=== PATIENT | female | born 2000 | race Caucasian/White ===

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

== ENCOUNTER 2022-11-23 22:30 | Outpatient (REF) | payer OTHER, MEDICAID, SELFPAY ==
[2022-11-23 21:31] LABS: Bacteria Many HPF (Negative); Crystals Moderate Amorphous HPF (Negative); Epithelial Cells Few HPF (Negative); RBC 0-2 HPF (0-2); WBC 0-2 HPF (0-5)
[2022-11-23 21:32] LABS: C & S Indicated? C&S Done As Ordered; Mucus Negative (Negative)
== END 2022-11-23 22:31 | disposition home or self-care (01) ==
LOC: LBN 22:30
PROVIDERS: PCP Nurse Practitioner Pediatrics; Visit Provider Nurse Practitioner Family
DX: R32 Unspecified urinary incontinence (principal); R35.0 Frequency of micturition
CPT/HCPCS: 81015; 87086

== ENCOUNTER 2023-11-21 09:15 | Outpatient (REF) | payer OTHER, SELFPAY ==
[2023-11-22 13:19] LABS: Chlamydia Result Negative (Negative); GC Result Negative (Negative)
== END 2023-11-21 09:16 | disposition home or self-care (01) ==
LOC: LBN 09:15
PROVIDERS: PCP Nurse Practitioner Pediatrics; Referring Provider Nurse Practitioner Pediatrics; Visit Provider Nurse Practitioner Pediatrics
DX: Z11.3 Encounter for screening for infections with a predominantly sexual mode of transmission (principal)
CPT/HCPCS: 87491; 87591

== ENCOUNTER 2023-11-22 21:43 | Outpatient (REF) | payer OTHER, SELFPAY | END 2023-11-22 21:44 | disposition home or self-care (01) | LOC: LBN 21:43 | PROVIDERS: PCP Nurse Practitioner Pediatrics; Visit Provider Nurse Practitioner Family | DX: N30.01 Acute cystitis with hematuria (principal); B96.89 Other specified bacterial agents as the cause of diseases classified elsewhere | CPT/HCPCS: 87086 ==

== ENCOUNTER 2024-02-10 02:48 | Outpatient (CLI) | payer OTHER, SELFPAY ==
[2024-02-10 12:57] LABS: Abs Immature Grans 0.01 10^3/uL (0.0-0.06); Absolute Basophil Count 0.03 10^3/uL (0.0-0.2); Absolute Eosinophil Count 0.02 10^3/uL (0.0-0.7); Absolute Lymphocyte Count 1.41 10^3/uL (1.2-3.4); Absolute Monocyte Count 0.36 10^3/uL (0.1-0.8); Absolute Neutrophil Count 3.57 10^3/uL (1.2-6.7); Basophils % 0.6 %; Eosinophils % 0.4 %; HCT 38.2 % (36.0-46.0); HGB 12.3 g/dL (11.2-15.7); Immature Grans % 0.2 %; Lymphocytes % 26.1 %; MCH 28.8 pg (27.0-33.0); MCHC 32.2 % (32.0-36.0); MCV 90 fL (80-95); MPV 10.4 fL (8.0-11.0); Monocytes % 6.7 %; Platelet Count 181 10^3/uL (130-400); RBC 4.27 10^6/uL (3.93-5.22); RDW 12.6 % (11.7-14.6); RDW-SD 41.1 fL
[2024-02-10 13:36] LABS: ALT 29 U/L (14-59); AST 18 U/L (15-37); Albumin 3.6 g/dL (3.4-5.0); Alkaline Phosphatase 71 U/L (46-116); Anion Gap 9.3 mmol/L (3-11); BUN 12 mg/dL (7-18); CO2 26.7 mmol/L (21.0-32.0); CREATININE 0.8 mg/dL (0.55-1.02); Calcium 8.6 mg/dL (8.5-10.1); Calculated LDL 85 mg/dL (<100); Chloride 108 mmol/L (98-107); Cholesterol 187 mg/dL (<200); Estimated GFR 107.44 (mL/min/1.73m2); Glucose 101 mg/dL (74-106); HDL Cholesterol 72 mg/dL (40-60); Potassium 3.6 mmol/L (3.5-5.1); Sodium 144 mmol/L (136-145); TSH (W/Ref FT4) 2.52 uIU/mL (0.36-3.74); Total Protein 7.1 g/dL (6.4-8.2); Triglyceride 152 mg/dL (<150)
[2024-02-22 15:11] LABS: Venlafaxine 83 ng/mL
[2024-02-22 15:26] LABS: O-Desmethylvenlafaxine 140 ng/mL
== END 2024-02-10 02:49 | disposition home or self-care (01) ==
LOC: LOS 02:49
PROVIDERS: PCP Nurse Practitioner Pediatrics; Visit Provider Nurse Practitioner Pediatrics
DX: F32.A Depression, unspecified (principal); R42 Dizziness and giddiness; Z13.220 Encounter for screening for lipoid disorders
CPT/HCPCS: 36415; 80053; 80061; 80338; 84443; 85025

== ENCOUNTER 2024-03-30 00:44 | Outpatient (CLI) | payer OTHER, SELFPAY ==
[2024-04-06 16:38] LABS: Venlafaxine 250 ng/mL
[2024-04-06 16:44] LABS: O-Desmethylvenlafaxine 270 ng/mL
== END 2024-03-30 00:45 | disposition home or self-care (01) ==
LOC: LBO 00:45
PROVIDERS: PCP Nurse Practitioner Pediatrics; Visit Provider Nurse Practitioner Pediatrics
DX: F33.2 Major depressive disorder, recurrent severe without psychotic features (principal)
CPT/HCPCS: 36415; 80338